=== PATIENT | female | born 1980 | race American Indian/Alaskan Native ===

== ENCOUNTER 2018-06-24 07:20 | Emergency (ER) | payer MEDICARE ==
[2018-06-24] MEDS ORDERED: NACL 0.9% 1000 ML 1,000 ML IV ONE (07:47)
[2018-06-24] MEDS ORDERED: NACL 0.9% 1000 ML 1,000 ML ONE ×2 (07:51→12:51)
[2018-06-24 08:23] LABS: Hematocrit 34.7 % (30.3-42.9); Hemoglobin 11.5 gm/dl (10.1-14.3); Mean Corpuscular HGB Conc 33 % (30-34); Mean Corpuscular Volume 88 fl (79-97); Platelet Count 147 K/mm3 (140-440); Red Blood Count 3.95 M/mm3 (3.65-5.03); Red Cell Distribution Width 15.9 % (13.2-15.2)
[2018-06-24 09:00] LABS: BUN/Creatinine Ratio 8; Blood Urea Nitrogen 5 mg/dL (7-17); Calcium 7.9 mg/dL (8.4-10.2); Hemolysis Index 10
[2018-06-24 09:46] LABS: Basophils % (Manual) 0 % (0.0-1.8); Eosinophils % (Manual) 0 % (0.0-4.3); Total Cells Counted 100
[2018-06-24] MEDS ORDERED: NACL 0.9% 1000 ML 2,000 ML IV ONE (09:46)
[2018-06-24] MEDS ORDERED: MORPHINE IV ONE (09:46)
[2018-06-24 09:47] LABS: Anisocytosis 1+; Platelet Estimate Consistent w Auto; Poikilocytosis 1+
--- NOTE | 2018-06-24 09:47 | Emergency Department Report ---
ED General Adult HPI - General Chief complaint: Chest Pain Stated complaint: CHEST PAIN Time Seen by Provider: 06/24/18 09:37 Source: patient, EMS (ems notes not available at time of chart dictation), RN notes reviewed Mode of arrival: Stretcher Limitations: No Limitations - History of Present Illness Initial comments: This is a 38-year-old female. The patient primary care doctor is Dr. Travis camarillo Past medical history includes hypertension, hysterectomy, multiple abdominal surgeries, including tumor removal. The patient presents to the emergency room today with multiple complaints. She complains of left-sided chest pain, chest wall pain, burning skin, and pain that radiates to her left lower quadrant. The patient denies DVT, pulmonary embolus risk factors. The pain does not radiate to the back, arms or neck. There is mild shortness of breath. The patient denies recent aspirin use, but was given aspirin by EMS. Other than that, has not taken aspirin. No cocaine use. Symptoms have been present since 4:00 am, and are intermittent. -: Gradual, hour(s) Location: chest, abdomen, left, upper extremity Radiation: abdomen Severity scale (0 -10): 7 Quality: burning, aching Consistency: intermittent Improves with: none Worsens with: none Associated Symptoms: chest pain, fever/chills, headaches, loss of appetite, malaise, shortness of breath, weakness. denies: confusion, cough, diaphoresis, nausea/vomiting, rash, seizure, syncope - Related Data Previous Rx's Medication Instructions Recorded Last Taken Type Acetaminophen [Tylenol Arthritis] 650 mg PO Q6HR PRN #30 tablet.er 06/24/18 Unknown Rx Magnesium Oxide 400 mg PO QDAY #14 tablet 06/24/18 Unknown Rx Metoclopramide [Reglan] 10 mg PO QID PRN #15 tab 06/24/18 Unknown Rx Potassium Chloride 20 meq PO BID #28 packet 06/24/18 Unknown Rx levoFLOXacin [Levaquin] 750 mg PO QDAY #6 tablet 06/24/18 Unknown Rx Allergies Allergy/AdvReac Type Severity Reaction Status Date / Time doxycycline Allergy Hives Verified 06/24/18 09:41 ED Review of Systems ROS: Stated complaint: CHEST PAIN Other details as noted in HPI Constitutional: malaise Eyes: denies: vision change ENT: denies: epistaxis Respiratory: shortness of breath Cardiovascular: chest pain Gastrointestinal: abdominal pain Genitourinary: denies: dysuria Musculoskeletal: arthralgia, myalgia Skin: other. denies: rash, lesions Neurological: weakness Psychiatric: anxiety ED Past Medical Hx - Past Medical History Previous Medical History?: Yes Hx Hypertension: Yes - Surgical History Past Surgical History?: Yes Additional Surgical History: HYSTER - Social History Smoking Status: Never Smoker Substance Use Type: Marijuana - Medications Home Medications: Home Medications Medication Instructions Recorded Confirmed Last Taken Type Acetaminophen [Tylenol Arthritis] 650 mg PO Q6HR PRN #30 tablet.er 06/24/18 Unknown Rx Magnesium Oxide 400 mg PO QDAY #14 tablet 06/24/18 Unknown Rx Metoclopramide [Reglan] 10 mg PO QID PRN #15 tab 06/24/18 Unknown Rx Potassium Chloride 20 meq PO BID #28 packet 06/24/18 Unknown Rx levoFLOXacin [Levaquin] 750 mg PO QDAY #6 tablet 06/24/18 Unknown Rx ED Physical Exam - General Limitations: No Limitations General appearance: alert, in no apparent distress - Head Head exam: Present: atraumatic, normocephalic - Eye Eye exam: Present: normal appearance - ENT ENT exam: Present: normal exam, normal orophraynx, mucous membranes moist, normal external ear exam - Neck Neck exam: Present: normal inspection, full ROM. Absent: tenderness, meningismus - Respiratory Respiratory exam: Present: normal lung sounds bilaterally, chest wall tenderness, other (chaperoned by nurse Gilbert Morales). Absent: respiratory distress, wheezes, rales, rhonchi, stridor - Cardiovascular Cardiovascular Exam: Present: regular rate, normal rhythm, normal heart sounds. Absent: bradycardia, tachycardia, irregular rhythm, systolic murmur, diastolic murmur, rubs, gallop - GI/Abdominal GI/Abdominal exam: Present: soft, rigid, normal bowel sounds. Absent: distended, tenderness, guarding, rebound, pulsatile mass - Extremities Exam Extremities exam: Present: normal inspection, full ROM, other (2+ pulses noted in the bilateral upper, lower extremities. Compartments soft. No long bony tenderness. The pelvis is stable.). Absent: pedal edema, joint swelling, calf tenderness - Back Exam Back exam: Present: normal inspection - Neurological Exam Neurological exam: Present: alert, oriented X3, CN II-XII intact, normal gait, other (Extraocular movements intact. Tongue midline. No facial droop. Facial sensation intact to light touch in the V1, V2, V3 distribution bilaterally. 5 and 5 strength in 4 extremities.. Sensation is intact to light touch in 4 extremities.). Absent: motor sensory deficit - Psychiatric Psychiatric exam: Present: anxious - Skin Skin exam: Present: warm, dry, intact, normal color. Absent: rash ED Course Vital Signs 06/24/18 06/24/18 06/24/18 07:43 07:45 08:00 Temperature 99.9 F H Pulse Rate 94 H 88 86 Respiratory 12 18 20 Rate Blood Pressure 133/94 Blood Pressure 134/84 [Left] O2 Sat by Pulse 98 100 98 Oximetry 06/24/18 06/24/18 06/24/18 08:31 09:01 09:30 Temperature Pulse Rate 95 H 94 H 94 H Respiratory 18 11 L 16 Rate Blood Pressure 129/84 141/82 123/83 Blood Pressure [Left] O2 Sat by Pulse 97 99 97 Oximetry 06/24/18 06/24/18 06/24/18 10:01 10:25 11:01 Temperature Pulse Rate 93 H 81 Respiratory 15 11 L Rate Blood Pressure 129/72 70/29 Blood Pressure [Left] O2 Sat by Pulse 98 98 98 Oximetry 06/24/18 06/24/18 06/24/18 11:25 11:30 12:40 Temperature Pulse Rate 89 92 H Respiratory 10 L Rate Blood Pressure 134/92 138/95 Blood Pressure 132/88 [Left] O2 Sat by Pulse 98 94 Oximetry 06/24/18 13:00 Temperature Pulse Rate 78 Respiratory 16 Rate Blood Pressure 128/89 Blood Pressure [Left] O2 Sat by Pulse 98 Oximetry - Reevaluation(s) Reevaluation #1: 06/24/18 13:51 Differential diagnosis, including not limited to: GERD, gastritis, high hernia, pancreatitis, pneumonia, pulmonary embolus, acute coronary syndrome, urinary tract infection, aortic disease Assessment and plan: 38-year-old female with chest pain that is reproducible, migratory pain, low-grade fever, and other nonspecific symptoms. The patient has reassuring vital signs. Troponin negative 3, patient low risk by the ANN score, heart score. EKG is unchanged 2, with nonspecific abnormalities. Patient did not have aortic disease them treated on CAT scan, nor did she have a pulmonary embolus demonstrated. A left-sided lingular pneumonia/pneumonitis was identified. Patient is saturating well, and suitable for trial oral outpatient antibiotics. The patient can follow-up with an outpatient primary care doctor or primer powder blender wet for her lingular pneumonia. Patient is suitable to follow up with outpatient primary care doctor or card iologist for incidental abnormal EKG. The patient is observed in the emergency room for hours without clinical decompensation, and is medically suitable to follow-up as an outpatient. Her potassium and magnesium were repleted, and she will be discharged with magnesium and potassium repletion ED Medical Decision Making - Lab Data Result diagrams: 06/24/18 07:44 06/24/18 07:44 Vital Signs 06/24/18 06/24/18 06/24/18 07:43 07:45 08:00 Temperature 99.9 F H Pulse Rate 94 H 88 86 Respiratory 12 18 20 Rate Blood Pressure 133/94 Blood Pressure 134/84 [Left] O2 Sat by Pulse 98 100 98 Oximetry 06/24/18 06/24/18 06/24/18 08:31 09:01 09:30 Temperature Pulse Rate 95 H 94 H 94 H Respiratory 18 11 L 16 Rate Blood Pressure 129/84 141/82 123/83 Blood Pressure [Left] O2 Sat by Pulse 97 99 97 Oximetry 06/24/18 06/24/18 06/24/18 10:01 10:25 11:01 Temperature Pulse Rate 93 H 81 Respiratory 15 11 L Rate Blood Pressure 129/72 70/29 Blood Pressure [Left] O2 Sat by Pulse 98 98 98 Oximetry 06/24/18 06/24/18 06/24/18 11:25 11:30 12:40 Temperature Pulse Rate 89 92 H Respiratory 10 L Rate Blood Pressure 134/92 138/95 Blood Pressure 132/88 [Left] O2 Sat by Pulse 98 94 Oximetry 06/24/18 13:00 Temperature Pulse Rate 78 Respiratory 16 Rate Blood Pressure 128/89 Blood Pressure [Left] O2 Sat by Pulse 98 Oximetry Lab Results 06/24/18 06/24/18 06/24/18 Range/Units 07:44 07:44 07:44 WBC 10.2 (4.5-11.0) K/mm3 RBC 3.95 (3.65-5.03) M/mm3 Hgb 11.5 (10.1-14.3) gm/dl Hct 34.7 (30.3-42.9) % MCV 88 (79-97) fl MCH 29 (28-32) pg MCHC 33 (30-34) % RDW 15.9 H (13.2-15.2) % Plt Count 147 (140-440) K/mm3 Add Manual Diff Complete Total Counted 100 Seg Neutrophils % Coach Operator Seg Neuts % (Manual) 89.0 H (40.0-70.0) % Band Neutrophils % 0 % Lymphocytes % (Manual) 7.0 L (13.4-35.0) % Reactive Lymphs % (Man) 0 % Monocytes % (Manual) 4.0 (0.0-7.3) % Eosinophils % (Manual) 0 (0.0-4.3) % Basophils % (Manual) 0 (0.0-1.8) % Metamyelocytes % 0 % Myelocytes % 0 % Promyelocytes % 0 % Blast Cells % 0 % Nucleated RBC % Not Reportable Seg Neutrophils # Man 9.1 H (1.8-7.7) K/mm3 Band Neutrophils # 0.0 K/mm3 Lymphocytes # (Manual) 0.7 L (1.2-5.4) K/mm3 Abs React Lymphs (Man) 0.0 K/mm3 Monocytes # (Manual) 0.4 (0.0-0.8) K/mm3 Eosinophils # (Manual) 0.0 (0.0-0.4) K/mm3 Basophils # (Manual) 0.0 (0.0-0.1) K/mm3 Metamyelocytes # 0.0 K/mm3 Myelocytes # 0.0 K/mm3 Promyelocytes # 0.0 K/mm3 Blast Cells # 0.0 K/mm3 WBC Morphology Not Reportable Hypersegmented Neuts Not Reportable Hyposegmented Neuts Not Reportable Hypogranular Neuts Not Reportable Smudge Cells Not Reportable Toxic Granulation Not Reportable Toxic Vacuolation Not Reportable Dohle Bodies Not Reportable Pelger-Huet Anomaly Not Reportable Milton Rods Not Reportable Platelet Estimate Consistent w auto Clumped Platelets Not Reportable Plt Clumps, EDTA Not Reportable Large Platelets Not Reportable Giant Platelets Not Reportable Platelet Satelliting Not Reportable Plt Morphology Comment Not Reportable RBC Morphology Not Reportable Dimorphic RBCs Not Reportable Polychromasia Not Reportable Hypochromasia Not Reportable Poikilocytosis 1+ Anisocytosis 1+ Microcytosis Not Reportable Macrocytosis Not Reportable Spherocytes Not Reportable Pappenheimer Bodies Not Reportable Sickle Cells Not Reportable Target Cells Not Reportable Tear Drop Cells Not Reportable Ovalocytes Not Reportable Helmet Cells Not Reportable [place] Bodies Not Reportable Sebastian Rings Not Reportable [place] Cells Not Reportable Bite Cells Not Reportable Crenated Cell Not Reportable Elliptocytes Not Reportable Acanthocytes (Spur) Not Reportable Rouleaux Not Reportable Hemoglobin C Crystals Not Reportable Schistocytes Not Reportable Malaria parasites Not Reportable Douglas Bodies Not Reportable Hem Pathologist Commnt No Sodium 140 (137-145) mmol/L Potassium 3.1 L (3.6-5.0) mmol/L Chloride 103.7 (98-107) mmol/L Carbon Dioxide 24 (22-30) mmol/L Anion Gap 15 mmol/L BUN 5 L (7-17) mg/dL Creatinine 0.6 L (0.7-1.2) mg/dL Estimated GFR > 60 ml/min BUN/Creatinine Ratio 8 % Glucose 106 H (65-100) mg/dL Lactic Acid (0.7-2.0) mmol/L Calcium 7.9 L (8.4-10.2) mg/dL Magnesium (1.7-2.3) mg/dL Total Bilirubin 0.90 (0.1-1.2) mg/dL Direct Bilirubin 0.2 (0-0.2) mg/dL Indirect Bilirubin 0.7 mg/dL AST 17 (5-40) units/L ALT 7 (7-56) units/L Alkaline Phosphatase 57 (35-129) units/L Total Creatine Kinase 72 (30-135) units/L Troponin T < 0.010 (0.00-0.029) ng/mL Total Protein 5.1 L (6.3-8.2) g/dL Albumin 3.0 L (3.9-5) g/dL Albumin/Globulin Ratio 1.4 % Lipase 16 (13-60) units/L Urine Color (Yellow) Urine Turbidity (Clear) Urine pH (5.0-7.0) Ur Specific Bertrand (1.003-1.030) Urine Protein (Negative) mg/dL Urine Glucose (UA) (Negative) mg/dL Urine Ketones (Negative) mg/dL Urine Blood (Negative) Urine Nitrite (Negative) Urine Bilirubin (Negative) Urine Urobilinogen (<2.0) mg/dL Ur Leukocyte Esterase (Negative) Urine WBC (Auto) (0.0-6.0) /HPF Urine RBC (Auto) (0.0-6.0) /HPF U Epithel Cells (Auto) (0-13.0) /HPF Urine Mucus /HPF Salicylates (2.8-20.0) mg/dL Acetaminophen (10.0-30.0) ug/mL Plasma/Serum Alcohol (0-0.07) % 06/24/18 06/24/18 06/24/18 Range/Units 07:44 09:52 09:52 WBC (4.5-11.0) K/mm3 RBC (3.65-5.03) M/mm3 Hgb (10.1-14.3) gm/dl Hct (30.3-42.9) % MCV (79-97) fl MCH (28-32) pg MCHC (30-34) % RDW (13.2-15.2) % Plt Count (140-440) K/mm3 Add Manual Diff Total Counted Seg Neutrophils % Seg Neuts % (Manual) (40.0-70.0) % Band Neutrophils % % Lymphocytes % (Manual) (13.4-35.0) % Reactive Lymphs % (Man) % Monocytes % (Manual) (0.0-7.3) % Eosinophils % (Manual) (0.0-4.3) % Basophils % (Manual) (0.0-1.8) % Metamyelocytes % % Myelocytes % % Promyelocytes % % Blast Cells % % Nucleated RBC % Seg Neutrophils # Man (1.8-7.7) K/mm3 Band Neutrophils # K/mm3 Lymphocytes # (Manual) (1.2-5.4) K/mm3 Abs React Lymphs (Man) K/mm3 Monocytes # (Manual) (0.0-0.8) K/mm3 Eosinophils # (Manual) (0.0-0.4) K/mm3 Basophils # (Manual) (0.0-0.1) K/mm3 Metamyelocytes # K/mm3 Myelocytes # K/mm3 Promyelocytes # K/mm3 Blast Cells # K/mm3 WBC Morphology Hypersegmented Neuts Hyposegmented Neuts Hypogranular Neuts Smudge Cells Toxic Granulation Toxic Vacuolation Dohle Bodies Pelger-Huet Anomaly [place] Rods Platelet Estimate Clumped Platelets Plt Clumps, EDTA Large Platelets Giant Platelets Platelet Satelliting Plt Morphology Comment RBC Morphology Dimorphic RBCs Polychromasia Hypochromasia Poikilocytosis Anisocytosis Microcytosis Macrocytosis Spherocytes Pappenheimer Bodies Sickle Cells Target Cells Tear Drop Cells Ovalocytes Helmet Cells [place] Bodies Sebastian Rings [place] Cells Bite Cells Crenated Cell Elliptocytes Acanthocytes (Spur) Rouleaux Hemoglobin C Crystals Schistocytes Malaria parasites Douglas Bodies Hem Pathologist Commnt Sodium (137-145) mmol/L Potassium (3.6-5.0) mmol/L Chloride (98-107) mmol/L Carbon Dioxide (22-30) mmol/L Anion Gap mmol/L BUN (7-17) mg/dL Creatinine (0.7-1.2) mg/dL Estimated GFR ml/min BUN/Creatinine Ratio % Glucose (65-100) mg/dL Lactic Acid (0.7-2.0) mmol/L Calcium (8.4-10.2) mg/dL Magnesium 1.20 L (1.7-2.3) mg/dL Total Bilirubin (0.1-1.2) mg/dL Direct Bilirubin (0-0.2) mg/dL Indirect Bilirubin mg/dL AST (5-40) units/L ALT (7-56) units/L Alkaline Phosphatase (35-129) units/L Total Creatine Kinase (30-135) units/L Troponin T (0.00-0.029) ng/mL Total Protein (6.3-8.2) g/dL Albumin (3.9-5) g/dL Albumin/Globulin Ratio % Lipase (13-60) units/L Urine Color (Yellow) Urine Turbidity (Clear) Urine pH (5.0-7.0) Ur Specific Bertrand (1.003-1.030) Urine Protein (Negative) mg/dL Urine Glucose (UA) (Negative) mg/dL Urine Ketones (Negative) mg/dL Urine Blood (Negative) Urine Nitrite (Negative) Urine Bilirubin (Negative) Urine Urobilinogen (<2.0) mg/dL Ur Leukocyte Esterase (Negative) Urine WBC (Auto) (0.0-6.0) /HPF Urine RBC (Auto) (0.0-6.0) /HPF U Epithel Cells (Auto) (0-13.0) /HPF Urine Mucus /HPF Salicylates 1.5 L (2.8-20.0) mg/dL Acetaminophen < 5.0 L (10.0-30.0) ug/mL Plasma/Serum Alcohol (0-0.07) % 06/24/18 06/24/18 06/24/18 Range/Units 10:08 10:52 Unknown WBC (4.5-11.0) K/mm3 RBC (3.65-5.03) M/mm3 Hgb (10.1-14.3) gm/dl Hct (30.3-42.9) % MCV (79-97) fl MCH (28-32) pg MCHC (30-34) % RDW (13.2-15.2) % Plt Count (140-440) K/mm3 Add Manual Diff Total Counted Seg Neutrophils % Seg Neuts % (Manual) (40.0-70.0) % Band Neutrophils % % Lymphocytes % (Manual) (13.4-35.0) % Reactive Lymphs % (Man) % Monocytes % (Manual) (0.0-7.3) % Eosinophils % (Manual) (0.0-4.3) % Basophils % (Manual) (0.0-1.8) % Metamyelocytes % % Myelocytes % % Promyelocytes % % Blast Cells % % Nucleated RBC % Seg Neutrophils # Man (1.8-7.7) K/mm3 Band Neutrophils # K/mm3 Lymphocytes # (Manual) (1.2-5.4) K/mm3 Abs React Lymphs (Man) K/mm3 Monocytes # (Manual) (0.0-0.8) K/mm3 Eosinophils # (Manual) (0.0-0.4) K/mm3 Basophils # (Manual) (0.0-0.1) K/mm3 Metamyelocytes # K/mm3 Myelocytes # K/mm3 Promyelocytes # K/mm3 Blast Cells # K/mm3 WBC Morphology Hypersegmented Neuts Hyposegmented Neuts Hypogranular Neuts Smudge Cells Toxic Granulation Toxic Vacuolation Dohle Bodies Pelger-Huet Anomaly [place] Rods Platelet Estimate Clumped Platelets Plt Clumps, EDTA Large Platelets Giant Platelets Platelet Satelliting Plt Morphology Comment RBC Morphology Dimorphic RBCs Polychromasia Hypochromasia Poikilocytosis Anisocytosis Microcytosis Macrocytosis Spherocytes Pappenheimer Bodies Sickle Cells Target Cells Tear Drop Cells Ovalocytes Helmet Cells [place] Bodies Sebastian Rings [place] Cells Bite Cells Crenated Cell Elliptocytes Acanthocytes (Spur) Rouleaux Hemoglobin C Crystals Schistocytes Malaria parasites Douglas Bodies Hem Pathologist Commnt Sodium (137-145) mmol/L Potassium (3.6-5.0) mmol/L Chloride (98-107) mmol/L Carbon Dioxide (22-30) mmol/L Anion Gap mmol/L BUN (7-17) mg/dL Creatinine (0.7-1.2) mg/dL Estimated GFR ml/min BUN/Creatinine Ratio % Glucose (65-100) mg/dL Lactic Acid 0.90 (0.7-2.0) mmol/L Calcium (8.4-10.2) mg/dL Magnesium (1.7-2.3) mg/dL Total Bilirubin (0.1-1.2) mg/dL Direct Bilirubin (0-0.2) mg/dL Indirect Bilirubin mg/dL AST (5-40) units/L ALT (7-56) units/L Alkaline Phosphatase (35-129) units/L Total Creatine Kinase (30-135) units/L Troponin T < 0.010 (0.00-0.029) ng/mL Total Protein (6.3-8.2) g/dL Albumin (3.9-5) g/dL Albumin/Globulin Ratio % Lipase (13-60) units/L Urine Color (Yellow) Urine Turbidity (Clear) Urine pH (5.0-7.0) Ur Specific Bertrand (1.003-1.030) Urine Protein (Negative) mg/dL Urine Glucose (UA) (Negative) mg/dL Urine Ketones (Negative) mg/dL Urine Blood (Negative) Urine Nitrite (Negative) Urine Bilirubin (Negative) Urine Urobilinogen (<2.0) mg/dL Ur Leukocyte Esterase (Negative) Urine WBC (Auto) (0.0-6.0) /HPF Urine RBC (Auto) (0.0-6.0) /HPF U Epithel Cells (Auto) (0-13.0) /HPF Urine Mucus /HPF Salicylates (2.8-20.0) mg/dL Acetaminophen (10.0-30.0) ug/mL Plasma/Serum Alcohol < 0.01 (0-0.07) % 06/24/18 Range/Units Unknown WBC (4.5-11.0) K/mm3 RBC (3.65-5.03) M/mm3 Hgb (10.1-14.3) gm/dl Hct (30.3-42.9) % MCV (79-97) fl MCH (28-32) pg MCHC (30-34) % RDW (13.2-15.2) % Plt Count (140-440) K/mm3 Add Manual Diff Total Counted Seg Neutrophils % Seg Neuts % (Manual) (40.0-70.0) % Band Neutrophils % % Lymphocytes % (Manual) (13.4-35.0) % Reactive Lymphs % (Man) % Monocytes % (Manual) (0.0-7.3) % Eosinophils % (Manual) (0.0-4.3) % Basophils % (Manual) (0.0-1.8) % Metamyelocytes % % Myelocytes % % Promyelocytes % % Blast Cells % % Nucleated RBC % Seg Neutrophils # Man (1.8-7.7) K/mm3 Band Neutrophils # K/mm3 Lymphocytes # (Manual) (1.2-5.4) K/mm3 Abs React Lymphs (Man) K/mm3 Monocytes # (Manual) (0.0-0.8) K/mm3 Eosinophils # (Manual) (0.0-0.4) K/mm3 Basophils # (Manual) (0.0-0.1) K/mm3 Metamyelocytes # K/mm3 Myelocytes # K/mm3 Promyelocytes # K/mm3 Blast Cells # K/mm3 WBC Morphology Hypersegmented Neuts Hyposegmented Neuts Hypogranular Neuts Smudge Cells Toxic Granulation Toxic Vacuolation Dohle Bodies Pelger-Huet Anomaly [place] Rods Platelet Estimate Clumped Platelets Plt Clumps, EDTA Large Platelets Giant Platelets Platelet Satelliting Plt Morphology Comment RBC Morphology Dimorphic RBCs Polychromasia Hypochromasia Poikilocytosis Anisocytosis Microcytosis Macrocytosis Spherocytes Pappenheimer Bodies Sickle Cells Target Cells Tear Drop Cells Ovalocytes Helmet Cells [place] Bodies Sebastian Rings Tara Cells Bite Cells Crenated Cell Elliptocytes Acanthocytes (Spur) Rouleaux Hemoglobin C Crystals Schistocytes Malaria parasites Douglas Bodies Hem Pathologist Commnt Sodium (137-145) mmol/L Potassium (3.6-5.0) mmol/L Chloride (98-107) mmol/L Carbon Dioxide (22-30) mmol/L Anion Gap mmol/L BUN (7-17) mg/dL Creatinine (0.7-1.2) mg/dL Estimated GFR ml/min BUN/Creatinine Ratio % Glucose (65-100) mg/dL Lactic Acid (0.7-2.0) mmol/L Calcium (8.4-10.2) mg/dL Magnesium (1.7-2.3) mg/dL Total Bilirubin (0.1-1.2) mg/dL Direct Bilirubin (0-0.2) mg/dL Indirect Bilirubin mg/dL AST (5-40) units/L ALT (7-56) units/L Alkaline Phosphatase (35-129) units/L Total Creatine Kinase (30-135) units/L Troponin T (0.00-0.029) ng/mL Total Protein (6.3-8.2) g/dL Albumin (3.9-5) g/dL Albumin/Globulin Ratio % Lipase (13-60) units/L Urine Color Yellow (Yellow) Urine Turbidity Clear (Clear) Urine pH 6.0 (5.0-7.0) Ur Specific Bertrand 1.013 (1.003-1.030) Urine Protein <15 mg/dl (Negative) mg/dL Urine Glucose (UA) Neg (Negative) mg/dL Urine Ketones Neg (Negative) mg/dL Urine Blood Neg (Negative) Urine Nitrite Neg (Negative) Urine Bilirubin Neg (Negative) Urine Urobilinogen < 2.0 (<2.0) mg/dL Ur Leukocyte Esterase Neg (Negative) Urine WBC (Auto) < 1.0 (0.0-6.0) /HPF Urine RBC (Auto) < 1.0 (0.0-6.0) /HPF U Epithel Cells (Auto) 1.0 (0-13.0) /HPF Urine Mucus Few /HPF Salicylates (2.8-20.0) mg/dL Acetaminophen (10.0-30.0) ug/mL Plasma/Serum Alcohol (0-0.07) % - EKG Data -: EKG Interpreted by Wy EKG shows normal: sinus rhythm Rate: normal - EKG Data When compared to previous EKG there are: previous EKG unavailable 06/24/18 13:54 EKG #1 demonstrates sinus, 91 bpm, normal axis, QTC prolonged, poor R-wave progression, T wave inversion lead 3, abnormal EKG, not consistent with ST elevation myocardial infarction. EKG #2 appears to be unchanged, there is a more prominent T-wave inversion in V2. Persistent poor r wave progression - Radiology Data Radiology results: report reviewed, image reviewed Print Report Referring Physician: OCTAVIA MOTA Patient Name: HUE CALLAHAN Date of : 1980 Sex: Female Report Date: 2018-06-24 Report Status: [place] [address] Cat Scan Report Signed Patient: HUE CALLAHAN MR#: [id number] : 1980 Acct:[id number] Age/Sex: 38 / F ADM Date: 06/24/18 Loc: ED Attending Dr: Ordering Physician: OCTAVIA MOTA MD Date of Service: 06/24/18 Procedure(s): CT angio chest Accession Number(s): [id number] cc: OCTAVIA MOTA MD CTA CHEST: HISTORY: chest pain. COMPARISON: none. TECHNIQUE: Helical CT in 1.25mm intervals following IV contrast. Pulmonary embolus protocol. Sagittal and coronal reformatted images. Rotational MIP images. FINDINGS: Contrast bolus is satisfactory. No pulmonary embolus is identified. Thyroid gland: Normal. Tracheobronchial tree: Normal. Esophagus: Normal. Heart: Normal. Pericardium: Normal. Mediastinum: Normal. Lung [place]: There is patchy infiltrate in the lingula concerning for pneumonia. Focal edema or pulmonary contusion could be considered but are thought less likely. Pleural Spaces: Normal. Musculoskeletal: Normal. IMPRESSION: No evidence for pulmonary embolus. Lingular infiltrate concerning for pneumonia. Transcribed By: TTR Dictated By: TETE KIMBALL JR, MD Electronically Authenticated By: TETE KIMBALL JR, MD Signed Date/Time: 06/24/18 1344 Referring Physician: OCTAVIA MOTA Patient Name: HUE CALLAHAN Date of : 1980 Sex: Female Report Date: 2018-06-24 Report Status: Finalized Findings [facility] [address] [place] [address] Cat Scan Report Signed Patient: HUE CALLAHAN MR#: [id number] : 1980 Acct:[id number] Age/Sex: 38 / F ADM Date: 06/24/18 Loc: ED Attending Dr: Ordering Physician: OCTAVIA MOTA MD Date of Service: 06/24/18 Procedure(s): CT abdomen pelvis w con Accession Number(s): [id number] cc: OCTAVIA MOTA MD CT ABDOMEN PELVIS WITH CONTRAST: HISTORY: Chest pain, abdominal pain. COMPARISON: none. TECHNIQUE: Helical CT in 1.25mm intervals following IV contrast. Sagittal and coronal reconstructions. FINDINGS: Liver: Normal. Biliary system: Cholecystectomy. Pancreas: Normal. Spleen: Normal. Kidneys/ureters/bladder: Normal. Adrenal glands: Normal. Aorta: Normal. Intestines: Surgical changes are noted in the stomach, correlate with history. Surgical suture line is also noted in the mid small bowel. No evidence for bowel obstruction or focal inflammation. Appendix: Not identified, correlate for history of appendectomy. Pelvic viscera: Hysterectomy. Ascites: None. Adenopathy: None. Musculoskeletal: Normal. IMPRESSION: Surgical changes. No acute process is identified in the abdomen or pelvis. Transcribed By: TTR Dictated By: TETE KIMBALL JR, MD Electronically Authenticated By: TETE KIMBALL JR, MD Signed Date/Time: 06/24/18 1345 Critical care attestation.: If time is entered above; I have spent that time in minutes in the direct care of this critically ill patient, excluding procedure time. ED Disposition Clinical Impression: Hypomagnesemia, Hypokalemia, Abnormal EKG Pneumonia Qualifiers: Pneumonia type: due to unspecified organism Laterality: left Lung location: lower lobe of lung Qualified Code(s): J18.1 - Lobar pneumonia, unspecified organism Disposition: DC-01 TO HOME OR SELFCARE Is pt being admited?: No Does the pt Need Aspirin: No Condition: Stable Instructions: Bacterial Pneumonia (ED) Additional Instructions: Take the potassium supplementation, magnesium supplementation as directed. Laboratory studies indicated decreased potassium and magnesium levels, and this should be followed up and rechecked by her primary care doctor within 7-[address] scan suggests a left lower lobe pneumonia. Take the antibiotics as directed, pain medication, nausea medication as needed/directed. Do not consume alcohol while taking these medications. Follow-up with the primary care doctor or tuberculosis specialist within the next 7-10 days for recheck on left-sided pneumonia. EKG demonstrated nonspecific abnormalities, which need to be followed up by her primary care doctor or rcis within the next 2 weeks. Follow up with a primary care doctor or the listed sight effects specialist as directed. Advance diet as tolerated, drink 4-6 cups of water per day for the next 5 days. Return to the emergency room right away with new pain, worsened pain, migration of pain, projectile vomiting, change in mental status, confusion, new, worsening or different symptoms. Referrals: [facility] [Provider Group] - 3-5 Days [facility] [Provider Group] - 7-10 days DANELLE TABARES MD [Staff Physician] - 7-10 days
[2018-06-24 10:15] LABS: Bilirubin,Urine NEG (Negative); Blood,Urine NEG (Negative); Color,Urine Yellow (Yellow); Mucus,Urine FEW /HPF; Protein,Urine <15 mg/dL mg/dL (Negative); RBC,Urine < 1.0 /HPF (0.0-6.0); Urobilinogen,Urine < 2.0 mg/dL (<2.0); WBC,Urine < 1.0 /HPF (0.0-6.0)
[2018-06-24 10:48] LABS: Bilirubin,Direct 0.2 mg/dL (0-0.2)
[2018-06-24] MEDS ORDERED: BENTYL ONE (11:12)
[2018-06-24] MEDS ORDERED: BENTYL PO ONE (11:22)
[2018-06-24] MEDS ORDERED: TYLENOL PO ONE (11:49)
[2018-06-24] MEDS ORDERED: K-DUR PO ONE (12:21)
[2018-06-24] MEDS ORDERED: MAGNESIUM SULFATE 2GM/50ML 2 GM/50 ML BAG IV ONE (12:21)
[2018-06-24] MEDS: KCL 10MEQ/100ML 10 MEQ/100 ML BAG IV SCH ×2 (13:16→14:40)
--- NOTE | 2018-06-24 13:47 | Cat Scan Report ---
CTA CHEST: HISTORY: chest pain. COMPARISON: none. TECHNIQUE: Helical CT in 1.25mm intervals following IV contrast. Pulmonary embolus protocol. Sagittal and coronal reformatted images. Rotational MIP images. FINDINGS: Contrast bolus is satisfactory. No pulmonary embolus is identified. Thyroid gland: Normal. Tracheobronchial tree: Normal. Esophagus: Normal. Heart: Normal. Pericardium: Normal. Mediastinum: Normal. Lung [place]: There is patchy infiltrate in the lingula concerning for pneumonia. Focal edema or pulmonary contusion could be considered but are thought less likely. Pleural Spaces: Normal. Musculoskeletal: Normal. IMPRESSION: No evidence for pulmonary embolus. Lingular infiltrate concerning for pneumonia.
--- NOTE | 2018-06-24 13:49 | Cat Scan Report ---
CT ABDOMEN PELVIS WITH CONTRAST: HISTORY: Chest pain, abdominal pain. COMPARISON: none. TECHNIQUE: Helical CT in 1.25mm intervals following IV contrast. Sagittal and coronal reconstructions. FINDINGS: Liver: Normal. Biliary system: Cholecystectomy. Pancreas: Normal. Spleen: Normal. Kidneys/ureters/bladder: Normal. Adrenal glands: Normal. Aorta: Normal. Intestines: Surgical changes are noted in the stomach, correlate with history. Surgical suture line is also noted in the mid small bowel. No evidence for bowel obstruction or focal inflammation. Appendix: Not identified, correlate for history of appendectomy. Pelvic viscera: Hysterectomy. Ascites: None. Adenopathy: None. Musculoskeletal: Normal. IMPRESSION: Surgical changes. No acute process is identified in the abdomen or pelvis.
[2018-06-24] MEDS ORDERED: LEVAQUIN 750MG/150ML 750 MG/150 ML BAG IV ONE (13:57)
[2018-06-24 15:25] VITALS: BP 129/90
== END 2018-06-24 15:31 | disposition home or self-care (01) ==
LOC: ED 07:20
DX: J18.1 Lobar pneumonia, unspecified organism (principal); E83.42 Hypomagnesemia; R94.31 Abnormal electrocardiogram [ECG] [EKG]; I10 Essential (primary) hypertension
CPT/HCPCS: 36415; 71275; 74177; 80048; 80076; 81001; 82140; 82550; 83690; 83735; 84484; 85007; 85025; 93005; 93010; 96365; 96366; 96368; 96375; 99285; G0480; J1956; J2270; J3475; J3480; J7030; Q9967; 80320

== ENCOUNTER 2019-05-12 08:57 | Outpatient (CLI) | payer OTHER ==
--- NOTE | 2019-05-12 09:59 | XRay Report ---
BILATERAL SHOULDER 6 VIEW(S) INDICATION / CLINICAL INFORMATION: BILATERAL SHOULDER PAIN COMPARISON: None available. FINDINGS: BONES / JOINT(S): No acute fracture or subluxation. No significant arthritis. SOFT TISSUES: No significant abnormality. ADDITIONAL FINDINGS: None. Signer Name: Trisha Costello MD Signed: 05/12/2019 9:54 AM Workstation Name: [id number]
--- NOTE | 2019-05-12 10:02 | XRay Report ---
CERVICAL SPINE 3 VIEWS INDICATION / CLINICAL INFORMATION: NECK PAIN. COMPARISON: None available. FINDINGS: VERTEBRAE: No acute fracture. No significant malalignment. DISC SPACES / FACET JOINTS:No significant abnormality. PARASPINAL SOFT TISSUES:No significant abnormality. ADDITIONAL FINDINGS: None. Signer Name: Trisha Costello MD Signed: 05/12/2019 9:58 AM Workstation Name: [id number]
== END 2019-05-12 08:58 | disposition home or self-care (01) ==
LOC: XRAY 08:57
PROVIDERS: ATTEND Internal Medicine
DX: M54.2 Cervicalgia (principal); F31.9 Bipolar disorder, unspecified; F20.0 Paranoid schizophrenia; M25.511 Pain in right shoulder; M25.512 Pain in left shoulder
CPT/HCPCS: 72040